=== PATIENT | male | born 1955 | race Caucasian/White ===

== ENCOUNTER 2023-06-19 10:50 | Emergency (ER) | payer MEDICARE ==
[~2023-06-19] VITALS: Ht 180.3 cm; Wt 98.5 kg
[2023-06-19] MEDS ORDERED: ACETAMINOPHEN 500 MG TAB PO ONE (15:05)
[2023-06-19] MEDS ORDERED: LIDOCAINE 2% W/EPINEPHRINE 20ML VIAL **PRES FREE INJ ONE (15:10)
[2023-06-19] MEDS ORDERED: NEOSPORIN OINT 0.9 GM PKT TOP ONE (15:45)
[2023-06-19] MEDS ORDERED: CEPH500C PO ×2 (15:58→15:59)
[2023-06-19] MEDS ORDERED: BACI500O59 EX (15:59)
[2023-06-19] MEDS ORDERED: CEPHALEXIN 500 MG CAP PO ONE (16:00)
[2023-06-19 16:19] VITALS: BP 140/73; TEMP 97.6; O2SAT 94
== END 2023-06-19 16:20 | disposition home or self-care (01) ==
LOC: M ED 10:50
DX: S81.811A Laceration without foreign body, right lower leg, initial encounter (principal); W26.8XXA Contact with other sharp object(s), not elsewhere classified, initial encounter; Y92.009 Unspecified place in unspecified non-institutional (private) residence as the place of occurrence of the external cause